=== PATIENT | female | born 1960 | race Caucasian/White ===

== ENCOUNTER 2017-12-12 13:59 | Emergency (ER) | payer OTHER ==
[~2017-12-12] VITALS: Ht 165.1 cm; Wt 83.5 kg
[2017-12-12] MEDS ORDERED: CYCL-259 PO (15:35)
[2017-12-12] MEDS ORDERED: AMIT50TA PO (15:35)
[2017-12-12] MEDS ORDERED: METH500T7 PO (15:35)
[2017-12-12 15:53] VITALS: BP 132/84
== END 2017-12-12 15:58 | disposition home or self-care (01) ==
LOC: ED 15:30
DX: M54.12 Radiculopathy, cervical region (principal); M19.90 Unspecified osteoarthritis, unspecified site; M51.36 Other intervertebral disc degeneration, lumbar region; G89.29 Other chronic pain; V49.49XA Driver injured in collision with other motor vehicles in traffic accident, initial encounter; Y93.89 Activity, other specified; Y92.89 Other specified places as the place of occurrence of the external cause; Y99.8 Other external cause status
CPT/HCPCS: 72050; 72072; 72110; 99284; J7512

== ENCOUNTER 2017-12-17 15:30 | Emergency (ER) | payer SELFPAY ==
[~2017-12-17] VITALS: Ht 165.1 cm; Wt 83.5 kg
[~2017-12-17 15:30] MED LIST: AMIT50TA PO; CYCL-259 PO; METH500T7 PO
[2017-12-17 15:32] VITALS: BP 145/95
[2017-12-17] MEDS ORDERED: DIAZEPAM 5 MG TABLET PO ONE ×2 (16:00→18:00)
[2017-12-17] MEDS ORDERED: DIAZEPAM 5 MG TABLET ONE ×2 (16:16→17:56)
[2017-12-17] MEDS ORDERED: ONDANSETRON ODT 4 MG ONE (16:23)
[2017-12-17] MEDS ORDERED: ONDANSETRON ODT 4 MG PO ONE (16:30)
== END 2017-12-17 18:08 | disposition home or self-care (01) ==
LOC: ED 17:11
DX: S16.1XXA Strain of muscle, fascia and tendon at neck level, initial encounter (principal); M54.12 Radiculopathy, cervical region; V49.49XA Driver injured in collision with other motor vehicles in traffic accident, initial encounter; Y93.89 Activity, other specified; Y99.8 Other external cause status; Y92.410 Unspecified street and highway as the place of occurrence of the external cause
CPT/HCPCS: 70450; 72125; 99284; Q0162